=== PATIENT | female | born 1940 | race Caucasian/White ===

== ENCOUNTER 2020-06-13 23:29 | Observation (INO) | payer MEDICARE, OTHER, SELFPAY ==
[2020-06-13 23:38] VITALS: PULSE 69; RESP 15; O2SAT 96
[2020-06-13 23:40] VITALS: BP 160/81; PULSE 75; RESP 14; TEMP 36.7; O2SAT 98
[2020-06-13 23:46] VITALS: BP 129/71; PULSE 69; RESP 14; O2SAT 96
[2020-06-13] MEDS: HYDROMORPHONE 0.5 MG INJ IV (23:49)
[2020-06-13] MEDS: SODIUM CHLORIDE 0.9% 1,000 ML 1000 ML IV (23:49)
[2020-06-13] MEDS: ONDANSETRON 4 MG/2 ML INJ IV (23:49)
[2020-06-13] MEDS: KETOROLAC 60 MG/2 ML VIAL 15 MG IV (23:49)
[2020-06-14] VITALS (44 sets, daily range): BP systolic 89–144; BP diastolic 46–78; PULSE 55–101; RESP 12–18; TEMP 36.1–37.3; O2SAT 88–99; BMI 25.6
--- NOTE | 2020-06-14 | PATH_ITS ---
[facility] Accession Number: [id number] . 01 Material submitted: . gallbladder - GALLBLADDER . 01 Clinical history: . LRQ PAIN . 02 Diagnosis: Gallbladder, Cholecystectomy: Chronic cholecystitis with cholelithiasis. Negative for dysplasia and malignancy. MRV 06/16/2020 1343 Local . 02 Electronically signed: . Yoselin Bronson MD, Pathologist NPI- [id number] . 01 Gross description: . Received in formalin, labeled with the patient's name, MRN and gallbladder, is a 7.9 x 3.3 x 2.0 cm gallbladder with an attached cystic duct, measuring 0.2 cm in length x 0.2 cm in diameter. The serosal surface is davis-green and smooth. The gallbladder is opened to reveal a green viscous bile with multiple yellow-davis calculi ranging in size from 0.1 cm to 1.0 cm in greatest dimension. The mucosal surface is davis-green and velvety. No discrete lesions are identified. The wall thickness measures up to 0.2 cm. No lymph nodes are identified. The cystic duct margin is inked black. The cystic duct margin, a surgical device sales representative section of the fundus, and a surgical device sales representative section of the body are submitted in cassette A1. ([id number]) /[facility] 06/15/2020 1549 Local . 02 Pathologist provided ICD-10: K80.60 . 02 CPT . 706782 Performed at: 01 [facility] [address] [id number] MD Ramiro Álvarez MD Phone: [phone] Performed at: 02 [facility] [address] [place] [id number] MD Yoselin Bronson MD Phone: [phone]
[2020-06-14 00:07] LABS: Add Manual Diff / Slide Review NO; Basophils Absolute Auto 100 /uL (0-100); Basophils Percent Auto 0.5 % (0-2); Eosinophils Absolute Auto 0 /uL (0-450); Eosinophils Percent Auto 0.1 % (2-4); Hematocrit 39.8 % (36-46); Hemoglobin 13.3 g/dL (12.0-16.0); Lymphocytes Absolute Auto 500 /uL (1100-4500); Lymphocytes Percent Auto 3.6 % (25-40); Mean Corpuscular HGB Conc 33.5 % (30-36); Mean Corpuscular Hemoglobin 30.3 PG (26-34); Mean Corpuscular Volume 90.7 fL (80-100); Monocytes Absolute Auto 400 /uL (0-900); Monocytes Percent Auto 3.4 % (3-14); Neutrophils Absolute Auto 11700 /uL (1500-7000); Neutrophils Percent Auto 92.4 % (50-75); Platelet Count 308 X10^3/uL (150-400); Red Blood Cell Count 4.39 X10^6/uL (4.0-5.2); White Blood Cell Count 12.6 X10^3/uL (4.5-11.0)
[2020-06-14 00:11] LABS: Alanine Aminotransferase 24 IU/L (<35); Albumin 4.4 g/dL (3.5-5.0); Albumin Globulin Ratio 1.8 (1.0-2.8); Alkaline Phosphatase 57 U/L (38-126); Aspartate Aminotransferase 29 IU/L (14-36); BUN Creatinine Ratio 34.8 (6-22); Bilirubin Total 1.1 mg/dL (0.2-1.3); Blood Urea Nitrogen 16 mg/dL (7-17); Calcium 9.1 mg/dL (8.4-10.2); Carbon Dioxide 24 mmol/L (22-32); Chloride 99 mmol/L (98-107); Estimated Glomerular Filt Rate > 60.0 mL/min (>60); Globulin 2.5 g/dL (1.7-4.1); Glucose 142 mg/dL (80-110); HEMOLYSIS < 15 (0-50); Lipase 25 U/L (23-300); Potassium 3.9 mmol/L (3.4-5.1); Sodium 132 mmol/L (137-145); Total Protein 6.9 g/dL (6.3-8.2)
--- NOTE | 2020-06-14 00:38 | DI.CT.S_ITS ---
PROCEDURE: CT ABDOMEN PELVIS W CON INDICATIONS: severe RLQ pain TECHNIQUE: After the administration of intravenous contrast, 5 mm thick sections acquired from the diaphragm to the symphysis. 5 mm coronal and sagittal reformats were acquired. For radiation dose reduction, the following was used: automated exposure control, adjustment of mA and/or kV according to patient size. COMPARISON: [facility], , ABDOMEN LIMITED, 06/14/2020, 3:05. FINDINGS: Image quality: Excellent. ABDOMEN: Lung bases: Lung bases are clear. Heart size is normal. Solid organs: Liver is enlarged. Gallbladder demonstrates multiple stones. Gallbladder wall is at the upper limits of normal. No visualized ductal stones. However, there is mild prominence of the bile ducts. Pancreas enhances normally. Spleen is normal in size and enhancement. No adrenal nodules. Kidneys demonstrate normal size and enhancement. There is slight prominence of the left renal collecting system without visualized source of obstruction. Multiple cysts are noted. Peritoneum and bowel: Bowel loops demonstrate normal wall thickness and caliber. No free fluid or air. Colonic diverticula without inflammatory changes are noted. There is mild appearance of distal esophageal thickening. Nodes and vessels: No retroperitoneal or mesenteric adenopathy by size criteria. Aorta and inferior vena cava are normal in size. Miscellaneous: Small fat containing umbilical hernia is present. In addition, a fat containing anterior hernia is present at the level of the liver with rectus diastasis measuring 22 mm. PELVIS: Genitourinary: Bladder wall thickness is normal. Miscellaneous: Fat containing inguinal hernias are noted. Bones: No suspicious bony lesions. No vertebral body compression fractures. IMPRESSION: 1. Cholelithiasis with gallbladder wall at the upper limits of normal suggestive of cholecystitis. Mild ductal dilation is identified without visualized choledocholithiasis. Ultrasound is recommended for further evaluation. The above findings are concordant with preliminary report. Dictated by: Ev Mueller M.D. on 06/14/2020 at 7:46 Approved by: Ev Mueller M.D. on 06/14/2020 at 7:58
--- NOTE | 2020-06-14 01:42 | ED.ABDPAIN ---
HPI - Abdominal Pain General Chief Complaint: Abdominal Pain Stated Complaint: LRQ pain Time Seen by Provider: 06/13/20 23:32 Source: patient and EMS Mode of arrival: EMS Limitations: no limitations History of Present Illness HPI narrative: 80F nonsmoker with non contributory medical history presents by aeromedical transport for chief complaint of severe RLQ pain. She states it felt like a pulled muscle for perhaps upwards of 1 week but over the past few days has become very intense and in her right lower quadrant. She denies any radiation of the pain but does state it seems to get worse with motion and improves with rest. Over the course of the day she has begun feeling ill with low-grade fever, poor appetite and nausea. She denies any vomiting. She denies any dysuria, frequency or urgency. She denies any vaginal bleeding discharge. She has been on a large boat out at [place]. She denies any history of the same. She denies bad food. MD complaint: abdominal pain Onset (ago): day(s) Pain Consistency: constant Location: RLQ Severity: severe Quality: cramping and stabbing Radiation: none Relieving factors: rest Exacerbating factors: movement Associated symptoms: nausea, fever and chills Related Data Allergies Allergy/AdvReac Type Severity Reaction Status Date / Time No Known Drug Allergies Allergy Verified 06/13/20 23:44 Review of Systems Constitutional Constitutional: Reports chills, Denies fatigue, Reports fever(s), Denies frequent falls, Denies lethargy and Denies weakness Eyes Eyes: Denies change in vision, Denies eye discharge, Denies irritation and Denies loss of vision ENT Ears, Nose, Mouth, and Throat: Denies change in voice, Denies dizziness, Denies neck pain, Denies sore throat and Denies throat swelling Cardiovascular Cardiovascular: Denies chest pain, Denies irregular heart rhythm, Denies lightheadedness, Denies palpitations, Denies dyspnea, Denies dyspnea on exertion and Denies orthopnea Respiratory Respiratory: Denies cough, Denies dyspnea, Denies dyspnea on exertion and Denies wheezing Gastrointestinal Gastrointestinal: Reports abdominal pain, Denies change in bowel habits, Denies diarrhea, Reports nausea and Denies vomiting Musculoskeletal Musculoskeletal: Denies neck pain and Denies numbness Integumentary/Breasts Skin/Breast: Denies pruritus, Denies erythema, Denies rash and Denies wounds Neurologic Neurologic: Denies behavioral changes, Denies confusion, Denies dizziness, Denies frequent falls, Denies loss of vision, Denies numbness and Denies weakness Psychiatric Psychiatric: Denies anxiety, Denies behavioral changes, Denies confusion, Denies depression, Denies homicidal ideation and Denies suicidal ideation Endocrine Endocrine: Denies fatigue, Denies flushing and Denies palpitations Hematologic/Lymphatic Hematologic/Lymphatic: Denies easy bruising Allergic/Immunologic Allergic/Immunologic: Denies urticaria, Denies throat swelling and Denies wheezing Patient History Social History Smoking Status: Never smoker Smoking Status: Never smoker alcohol intake frequency: 0-2 drinks per day Substance Use Type: does not use Exam Narrative Exam Narrative: GENERAL: [] year old patient appears stated age. Well-nourished, well-developed patient, in mild distress. HEAD: Atraumatic. Normocephalic. EYES: Pupils equal round and reactive. Extraocular motions intact. No scleral icterus. No injection or drainage. ENT: Nose without bleeding, purulent drainage. Throat without erythema, tonsillar hypertrophy or exudate. Airway patent. NECK: Trachea midline. Non tender CARDIOVASCULAR: Regular rate and rhythm without murmurs, gallops, or rubs. RESPIRATORY: Clear to auscultation. Breath sounds equal bilaterally. No wheezes, rales, or rhonchi. GASTROINTESTINAL: Abdomen soft, tender in the right lower quadrant, nondistended. No obturator's or psoas EXTREMITIES: No edema or joint tenderness. BACK: Nontender without deformity or crepitance. No flank tenderness. NEURO: AOx3. SKIN: No rash or erythema of visible areas Initial Vital Signs Initial Vital Signs: Vital Signs Pulse Rate 69 06/13/20 23:38 Respiratory Rate 15 06/13/20 23:38 Pulse Oximetry 96 06/13/20 23:38 Course Orders Ordered: ED Orders 06/13/20 23:37 Complete Blood Count AUTO DIFF Stat Comprehensive Metabolic Panel Stat Lipase Stat 06/14/20 00:38 CT abdomen pelvis w con Stat 06/14/20 01:45 Urine Microscopic Stat 06/14/20 02:40 US abdomen limited Stat Discontinued Medications Hydromorphone HCl (Dilaudid) 0.5 mg IV NOW ONE Stop: 06/13/20 23:45 Last Admin: 06/13/20 23:49 Dose: 0.5 mg Documented by: GOLDIE Hydromorphone HCl (Dilaudid) 0.5 mg IV NOW ONE Stop: 06/14/20 03:54 Sodium Chloride (Normal Saline 0.9%) 1,000 mls @ 1,000 mls/hr IV BOLUS ONE Stop: 06/14/20 00:43 Last Infusion: 06/14/20 01:59 Dose: 0 mls/hr Documented by: Admin: 06/13/20 23:49 Dose: 1,000 mls/hr Documented by: GOLDIE Ketorolac Tromethamine (Toradol) 15 mg IV NOW ONE Stop: 06/13/20 23:45 Last Admin: 06/13/20 23:49 Dose: 15 mg Documented by: GOLDIE Ondansetron HCl (Zofran) 4 mg IV NOW ONE Stop: 06/13/20 23:45 Last Admin: 06/13/20 23:49 Dose: 4 mg Documented by: GOLDIE Consultations Consultation #1: Dr. Singh to accept patient on his service Vital Signs Vital signs: Vital Signs - 8 hr 06/13/20 23:38 06/13/20 23:40 06/13/20 23:46 Temperature 98.0 F Pulse Rate 69 75 69 Respiratory Rate 15 14 14 Blood Pressure 160/81 H 129/71 Pulse Oximetry 96 98 96 06/14/20 00:00 06/14/20 00:15 06/14/20 00:30 Temperature Pulse Rate 62 63 62 Respiratory Rate Blood Pressure 119/67 107/58 L 107/56 L Pulse Oximetry 98 98 99 06/14/20 00:45 06/14/20 01:11 06/14/20 01:30 Temperature Pulse Rate 62 73 62 Respiratory Rate Blood Pressure 107/58 L Pulse Oximetry 99 94 99 06/14/20 01:32 06/14/20 01:40 06/14/20 01:45 Temperature Pulse Rate 65 69 62 Respiratory Rate Blood Pressure 121/59 L 144/77 H 121/64 Pulse Oximetry 98 95 95 06/14/20 02:00 Temperature Pulse Rate 61 Respiratory Rate Blood Pressure 111/59 L Pulse Oximetry 92 MDM - Abdominal Pain Lab Data Result diagrams: 06/13/20 23:37 06/13/20 23:37 Labs: Lab Results 06/13/20 06/13/20 06/14/20 Range/Units 23:37 23:37 01:45 WBC 12.6 H (4.5-11.0) X10^3/uL RBC 4.39 (4.0-5.2) X10^6/uL Hgb 13.3 (12.0-16.0) g/dL Hct 39.8 (36-46) % MCV 90.7 (80-100) fL MCH 30.3 (26-34) PG MCHC 33.5 (30-36) % RDW 13.0 (11.6-14.8) % Plt Count 308 (150-400) X10^3/uL Neut % (Auto) 92.4 H (50-75) % Lymph % (Auto) 3.6 L (25-40) % [place] % (Auto) 3.4 (3-14) % Eos % (Auto) 0.1 L (2-4) % Baso % (Auto) 0.5 (0-2) % Neut # (Auto) 30711 H (1413-9939) /uL Lymph # (Auto) 500 L (9433-6943) /uL [place] # (Auto) 400 (0-900) /uL Eos # (Auto) 0 (0-450) /uL Baso # (Auto) 100 (0-100) /uL Sodium 132 L (137-145) mmol/L Potassium 3.9 (3.4-5.1) mmol/L Chloride 99 (98-107) mmol/L Carbon Dioxide 24 (22-32) mmol/L BUN 16 (7-17) mg/dL Creatinine 0.46 L (0.52-1.04) mg/dL Estimated GFR > 60.0 (>60) mL/min BUN/Creatinine Ratio 34.8 H (6-22) Glucose 142 H (80-110) mg/dL Calcium 9.1 (8.4-10.2) mg/dL Total Bilirubin 1.1 (0.2-1.3) mg/dL AST 29 (14-36) IU/L ALT 24 (<35) IU/L Alkaline Phosphatase 57 (38-126) U/L Total Protein 6.9 (6.3-8.2) g/dL Albumin 4.4 (3.5-5.0) g/dL Globulin 2.5 (1.7-4.1) g/dL Albumin/Globulin Ratio 1.8 (1.0-2.8) Lipase 25 (23-300) U/L Urine RBC 1-5/hpf (0-5/HPF) Urine WBC 1-5/hpf (0-5/HPF) Ur Squamous Epith Cells 1-5 /hpf (0-5/HPF) Urine Bacteria Few (2-10) H (None) Hyaline Casts 0-1/lpf (None) Ur Culture Indicated? Cult not indicated Point of care testing: Urine Dip Bedside Urine Glucose Negative Bedside Urine Bilirubin - Negative Bedside Urine Ketone ++ 40 Urine Specific [place] 1.015 Bedside Urine Occult Blood +/- Bedside Urine pH 6.5 Bedside Urine Protein + 30 Bedside Urine Urobilinogen - Negative Bedside Urine Nitrite - Negative Bedside Urine Leukocytes +/- 15 Esterase Imaging Data US - abdomen: Radiologist's Impression: Acute cholecystitis with gallbladder wall thickening, distended gallbladder and positive Faith sign CT scan - abdomen/pelvis: Radiologist's Impression: Cholelithiasis and distended gallbladder with slightly prominent wall. Ultrasound is clinically indicated.
[2020-06-14 02:08] LABS: Bacteria Urine Few (2-10); Hyaline Casts Urine 0-1/LPF; RBC Urine 1-5/HPF (0-5/HPF); Squamous Epithelial Cell Urine 1-5 /HPF (0-5/HPF); WBC Urine 1-5/HPF (0-5/HPF)
[2020-06-14 02:09] LABS: Culture Indicated Urine Cult Not Indicated
[2020-06-14] MEDS: HYDROMORPHONE 0.5 MG INJ IV (04:13)
[2020-06-14] MEDS: SODIUM CHLORIDE 0.9% 1,000 ML 125 ML IV (06:10)
[2020-06-14] MEDS: MORPHINE 2 MG/ML INJ IV ×2 (06:10→12:22)
[2020-06-14 06:16] LABS: COVID19 -Nasal RAPID Negative (Negative)
[2020-06-14] MEDS: PIPERACILLIN-TAZO 3.375 GM/50 ML FROZ.PIGGY IV ×2 (06:22→20:30)
--- NOTE | 2020-06-14 08:31 | PM.HP.1 ---
History of Present Illness History of Present Illness Date Patient Seen: 06/14/20 Time Patient Seen: 08:32 Chief complaint: LRQ pain Narrative: This is a 80-year-old woman who is seen in consultation for acute cholecystitis. She developed a right-sided abdominal pain associated with some nausea no vomiting yesterday. She is brought to the emergency room underwent a CT as well as a right upper quadrant ultrasound both of which demonstrates multiple gallstones and evidence of acute cholecystitis. On admission she was afebrile blood white blood cell count 12 LFTs within normal limits, she was started on IV Zosyn. No history of biliary colic. Past medical history relevant for hypertension, abdominoplasty, knee replacement. Patient History Medical History (Updated 06/14/20 @ 08:35 by Cristofer Singh MD) HTN (hypertension) (Acute) Surgical History (Updated 06/14/20 @ 08:34 by Cristofer Singh MD) H/O: hysterectomy (Acute) History of knee replacement (Acute) Family & Social History Social History: household members spouse Prior Living Arrangements Apartment/Condo Safety & Behavioral: Feels Safe in Current Yes Environment Been Physically Hurt or No Threatened By a Person Suicidal Ideation Description None Suicide Plan Description No Plan Tobacco & Substance use: Smoking Status Never smoker alcohol intake frequency 3 or more drinks per day Substance Use Type does not use Meds Home Medications and Allergies Allergies Allergy/AdvReac Type Severity Reaction Status Date / Time No Known Drug Allergies Allergy Verified 06/13/20 23:44 Review of Systems Review of Systems Narrative: A 10 point review of systems is negative except as noted in the HPI Exam Vital Signs (past 8 hours): - 06/14/20 00:45 06/14/20 01:11 06/14/20 01:30 Temperature Pulse Rate 62 73 62 Respiratory Rate Blood Pressure 107/58 L Pulse Oximetry 99 94 99 06/14/20 01:32 06/14/20 01:40 06/14/20 01:45 Temperature Pulse Rate 65 69 62 Respiratory Rate Blood Pressure 121/59 L 144/77 H 121/64 Pulse Oximetry 98 95 95 06/14/20 02:00 06/14/20 02:15 06/14/20 02:30 Temperature Pulse Rate 61 60 63 Respiratory Rate 15 Blood Pressure 111/59 L 104/56 L 111/58 L Pulse Oximetry 92 92 91 06/14/20 02:45 06/14/20 03:00 06/14/20 03:15 Temperature Pulse Rate 62 67 66 Respiratory Rate Blood Pressure 106/60 112/71 124/64 Pulse Oximetry 92 93 95 06/14/20 03:30 06/14/20 03:31 06/14/20 03:45 Temperature Pulse Rate 65 65 62 Respiratory Rate Blood Pressure 133/78 114/67 Pulse Oximetry 92 94 95 06/14/20 04:00 06/14/20 04:15 06/14/20 04:30 Temperature Pulse Rate 61 65 58 L Respiratory Rate Blood Pressure 120/67 119/69 98/55 L Pulse Oximetry 93 95 88 L 06/14/20 04:45 06/14/20 04:48 06/14/20 05:00 Temperature Pulse Rate 59 L 60 58 L Respiratory Rate Blood Pressure 89/53 L 92/54 L 98/56 L Pulse Oximetry 89 L 89 L 91 06/14/20 05:15 06/14/20 06:50 06/14/20 07:41 Temperature 98.0 F 97.1 F L Pulse Rate 59 L 57 L Respiratory Rate 18 16 Blood Pressure 110/56 L 98/55 L Pulse Oximetry 90 L 94 90 L Oxygen Delivery Method Room Air Oxygen Flow Rate 0 Narrative Exam Narrative: General-no acute distress, well nourished elderly woman HEENT-moist mucous membranes, no scleral icterus Neck-supple, no lymphadenopathy Chest- non labored respirations, clear to auscultation bilaterally Cardiac-regular rate no peripheral edema Abdomen-soft, mildly tender right upper quadrant. Extremities-warm, well perfused Neurological-alert and oriented, no focal deficits Objective Labs Result Diagrams: 06/13/20 23:37 06/13/20 23:37 Labs: Laboratory Results - last 24 hr 06/13/20 06/13/20 06/14/20 23:37 23:37 01:45 WBC 12.6 H RBC 4.39 Hgb 13.3 Hct 39.8 MCV 90.7 MCH 30.3 MCHC 33.5 RDW 13.0 Plt Count 308 Neut % (Auto) 92.4 H Lymph % (Auto) 3.6 L [place] % (Auto) 3.4 Eos % (Auto) 0.1 L Baso % (Auto) 0.5 Neut # (Auto) 81866 H Lymph # (Auto) 500 L [place] # (Auto) 400 Eos # (Auto) 0 Baso # (Auto) 100 Sodium 132 L Potassium 3.9 Chloride 99 Carbon Dioxide 24 BUN 16 Creatinine 0.46 L Estimated GFR > 60.0 BUN/Creatinine Ratio 34.8 H Glucose 142 H Calcium 9.1 Total Bilirubin 1.1 AST 29 ALT 24 Alkaline Phosphatase 57 Total Protein 6.9 Albumin 4.4 Globulin 2.5 Albumin/Globulin Ratio 1.8 Lipase 25 Urine RBC 1-5/hpf Urine WBC 1-5/hpf Ur Squamous Epith Cells 1-5 /hpf Urine Bacteria Few (2-10) H Hyaline Casts 0-1/lpf Ur Culture Indicated? Cult not indicated COVID-19 PCR 06/14/20 05:00 WBC RBC Hgb Hct MCV MCH MCHC RDW Plt Count Neut % (Auto) Lymph % (Auto) [place] % (Auto) Eos % (Auto) Baso % (Auto) Neut # (Auto) Lymph # (Auto) [place] # (Auto) Eos # (Auto) Baso # (Auto) Sodium Potassium Chloride Carbon Dioxide BUN Creatinine Estimated GFR BUN/Creatinine Ratio Glucose Calcium Total Bilirubin AST ALT Alkaline Phosphatase Total Protein Albumin Globulin Albumin/Globulin Ratio Lipase Urine RBC Urine WBC Ur Squamous Epith Cells Urine Bacteria Hyaline Casts Ur Culture Indicated? COVID-19 PCR Negative Assessment & Plan Assessment and plan (1) Acute cholecystitis: Status: Acute Assessment & Plan narrative: 80-year-old woman with with 24 hours of acute cholecystitis, normal LFTs. I reviewed her ultrasound as well as her CT abdomen pelvis which demonstrates cholelithiasis and associated acute cholecystitis. I recommended that we proceed with a laparoscopic cholecystectomy. I described the technical nature of the operation to her and the surgical risks including bleeding infection damage to surrounding structures need for further procedure heart attack stroke . Her questions have been answered she is in agreement with this plan will proceed to the operating room. COVID-19 COVID-19 status: Negative Result date/Date tested (Pos, Neg/Pending): 06/14/20 Quality VTE Deep Vein Thrombosis/Pulmonary Embolism Present on Admission: No
--- NOTE | 2020-06-14 09:01 | CM.DANOTE ---
DCP: Case received, EMR reviewed and met with patient. , Catracho, was also present in room. Was able to obtain information regarding baseline activity level prior to hospitalization. DCP assessment completed with information currently available. Patient is a 80 year old female who admitted early this morning to the care of the hospitalist/surgical team. PCP: Dr. Sanchez at [facility]. Payer: confirmed: Medicare/[employer]. Patient came to the hospital via EMS secondary to having right lower quadrant pain. Patient was diagnosed with acute cholecystitis. She is to be having laparoscopic surgery. Patient and her reside in [place]. They were on a friend's boat near [place], when the symptoms occurred. Patient is alert and oriented, independent. She does not drive due to her macular degeneration. P: DCP to continue to follow. Patient should be able to go home when she is medically stable. Dinorah Cee RN/Pathology Collector
--- NOTE | 2020-06-14 13:41 | PC.NURSE ---
Patient down to OR at 1335.
[2020-06-14] MEDS: LACTATED RINGERS 1,000 ML 42 ML IV ×2 (14:00→17:31)
[2020-06-14] MEDS: CEFAZOLIN 2 GM/100 ML FROZ.PIGGY IV (14:39)
--- NOTE | 2020-06-14 15:01 | SUR.OPER ---
Supine on padded OR bed, head on pillow, safety belt at thigh, left arm padded and tucked at side. Right arm secured on padded arm oard <90 degrees abduction. Legs uncrossed. Padded footboard in place. Tape over blanket to secure lower legs.
[2020-06-14] MEDS: BUPIVACAINE 0.25% (PF) VIAL 30 ML INJ (15:08)
--- NOTE | 2020-06-14 16:17 | P.OP_ITS ---
Operative Date/Time/Diagnoses Date of procedure: 06/14/20 Time of procedure: 16:17 Pre-op diagnosis: acute cholecystitis Post-op diagnosis: same Procedure & Clinicians Procedure: laparoscopic cholecystectomy Same procedure as scheduled: Yes Indications: 80F with RUQ pain x 24h pain RUQ US demonstrates acute cholecystitis Surgeon: Cristofer Singh Anesthesia Type: General Operative Notes Findings: Chronic cholecystitis Specimen(s): other Prosthetic devices, grafts, tissues, transplants, or devices: gallbladder Estimated Blood Loss (mL): 40 Procedure in detail: The patient was placed supine on the table and bilateral lower extremity compression devices were applied. Anesthesia was induced they were intubated with an endotracheal tube and received 2g of Ancef. A time-out was performed. They were prepped and draped in sterile fashion. An infraumbilical incision was made, the umbilical stalk was elevated and the fascia was sharply incised entering the abdomen atraumatically. A blunt tip 12mm balloon trocar was then inserted, pneumoperitoneum was established and insp ection of the abdomen demonstrated no evidence of injury. They were placed head up and right side up and then a 11 mm port was placed high in the epigastrium and two 5mm in the right upper quadrant. There was extensive adhesions between the gallbladder and the omentum and the liver suggestive of acute on chronic cholecystitis. The gallbladder was percutanously drained to facilitate its mobilization. The gallbladder was grasped by the fundus and retracted over the liver and retracted laterally by the infundibulum. Using electrocautery the lateral plane between the gallbladder and the liver was opened towards the fundus. The gallbladder was then retracted laterally and the medial plane was developed in the same manner. With the gallbladder mobilized the bottom of the cystic plate was visualized. The hepatocystic triangle was meticulosly skeletonized using hook electrocautery of all fat and fibrous tissue from both the front and the back. Only two structures were then clearly seen entering the gallbladder the cystic duct and the cystic artery. With the critical view of safety fully established the cystic duct was clipped twice proximally and once distally using the 10 mm clip applied under direct visualization and then sharply divided. The cystic artery was divided in the same fashion. The gallbladder was removed from the liver bed using electro cautery. The liver bed was then inspected for hemostasis and this was achieved. The abdomen was irrigated with sterile saline and inspection was made that showed the clips in good position. The specimen was removed using Endo-Catch. The abdomen was desufflated. The umbilical fascia was closed with 0 Vicryl in a [id number] fashion under direct visualization. Skin incisions were irrigated and closed with 4-0 Monocryl. 30 ml of 0.25% bupivacaine was infiltrated into the subcutaneous tissue of the incisions. The wounds were sealed with Dermabond. Patient emerged from anesthesia was extubated and transferred to recovery in stable condition. The sponge and instrument count at the end of the operation was correct. Complications: none Post-operative Condition: stable Disposition: Acute Care
[2020-06-14] MEDS: ATORVASTATIN 10 MG TABLET PO (20:30)
[2020-06-14] MEDS: ACETAMINOPHEN 325 MG TABLET 650 MG PO (22:16)
[2020-06-14] MEDS: OXYCODONE IR 5 MG TABLET PO (22:17)
--- NOTE | 2020-06-14 22:35 | PC.NURSE ---
Evening shift: Report received from PACU. Care assumed at 1655. Pt. drowsy but oriented and appropriate. Denies pain, nausea. VSS. Lap sites covered with band-aids, CDI. Ate lightly. OOB, steady on feet, voiding, positive flatus. Some pain around 2200, pain meds given.
[2020-06-15] MEDS: ACETAMINOPHEN 325 MG TABLET 650 MG PO (03:59)
[2020-06-15 04:00] VITALS: BP 110/55; PULSE 67; RESP 18; TEMP 36.9; O2SAT 95
[2020-06-15] MEDS: OXYCODONE IR 5 MG TABLET PO ×2 (04:00→10:16)
[2020-06-15] MEDS: LEVOTHYROXINE 88 MCG TABLET PO (05:18)
[2020-06-15] MEDS: PIPERACILLIN-TAZO 3.375 GM/50 ML FROZ.PIGGY IV (05:18)
[2020-06-15] MEDS: MORPHINE 2 MG/ML INJ IV (05:57)
[2020-06-15 08:16] VITALS: BP 103/52; PULSE 61; RESP 18; TEMP 37.1; O2SAT 92
[2020-06-15] MEDS: FLUoxetine 20 MG CAPSULE 40 MG PO (08:49)
[2020-06-15] MEDS: buPROPion XL 150 MG TAB PO (08:49)
--- NOTE | 2020-06-15 10:01 | PM.DS.1 ---
History of Present Illness History of Present Illness Chief complaint: LRQ pain Narrative: This is a 80-year-old woman who is seen in consultation for acute cholecystitis. She developed a right-sided abdominal pain associated with some nausea no vomiting yesterday. She is brought to the emergency room underwent a CT as well as a right upper quadrant ultrasound both of which demonstrates multiple gallstones and evidence of acute cholecystitis. On admission she was afebrile blood white blood cell count 12 LFTs within normal limits, she was started on IV Zosyn. No history of biliary colic. Past medical history relevant for hypertension, abdominoplasty, knee replacement. Discharge Providers Provider Date of admission: 06/14/20 04:43 Discharge Date: 06/15/20 Discharge provider: Cristofer Singh MD Summary Hospital Course Discharge Diagnosis: Acute cholecystitis Hospital Course: 80-year-old woman was admitted for acute cholecystitis. She received antibiotic therapy was taken to the operating room and underwent a laparoscopic cholecystectomy on 06/14 which demonstrated acute on chronic cholecystitis. Her postoperative observation period was unremarkable. On postoperative day 1 she is tolerating a diet without nausea vomiting abdominal pain is well controlled she is urinating normally. Status at Discharge Cognitive/behavioral status at discharge: oriented Functional status at discharge: independent ambulation Overall status at discharge: patient is back to baseline Exam Vital Signs (past 8 hours): - 06/15/20 04:00 06/15/20 08:16 Temperature 98.4 F 98.7 F Pulse Rate 67 61 Respiratory Rate 18 18 Blood Pressure 110/55 L 103/52 L Pulse Oximetry 95 92 Oxygen Delivery Method Nasal Cannula Oxygen Flow Rate 2 Narrative Exam Narrative: General elderly female alert oriented no acute distress Abdomen soft appropriately tender to palpation incisions clean dry intact. Objective Labs Result Diagrams: 06/13/20 23:37 06/13/20 23:37 Discharge Plan Discharge Plan Patient Disposition: Home Discharge orders & Medications Prescriptions: New oxycodone 5 mg tablet 5 mg PO Q6H PRN (Reason: pain) Qty: 20 RF: 0 Continued atorvastatin 10 mg tablet 10 mg PO DAILY RF: 0 bupropion HCl 150 mg tablet sustained-release 12 hr 150 mg PO DAILY RF: 0 fluoxetine 40 mg capsule 40 mg PO DAILY RF: 0 levothyroxine 88 mcg tablet 88 mcg PO DAILY RF: 0 Diet/Activity/Treatments Diet: Low-fat Activity: No lifting >20 lbs x 4 weeks. Walking only for exercise for [address] while taking narcotics. Skin/Wound/Dressing Care Report to your healthcare provider any signs of infection, such as:: chills, fever, increased pain, unusual drainage and unusual redness Visit Report/Discharge Packet Instructions: Cholecystectomy -- Laparoscopic Surgery, Oxycodone, [facility]: Wound Care Visit Report Forms: Patient Portal/API, Stroke Signs & Symptoms Discharge Data Attending Provider: Cristofer Singh Admit Date/Time: 06/14/20 04:43 Quality VTE Deep Vein Thrombosis/Pulmonary Embolism Present on Admission: No
--- NOTE | 2020-06-15 12:09 | PC.NURSE ---
Discharge: IV's dc'd intact. Reviewed all instructions and provided with prescriptions. She will f/u with her PCP in [place] (per Dr Singh). Verbalized understanding of d/c info and stated no further questions. All belongings collected and sent with patient, wheeled out to private vehicle by nursing staff.
== END 2020-06-15 12:11 | disposition home or self-care (01) ==
LOC: ED 06-14 04:09 → AC 06-14 07:17
PROVIDERS: Admitting Provider Surgery; Emergency Provider Emergency Medicine; Referring Provider Emergency Medicine; Visit Provider Surgery
PROC: 0FT44ZZ Resection of Gallbladder, Percutaneous Endoscopic Approach (ICD-10-PCS; CPT 47562; principal; 2020-06-14 15:00)
DX: R10.31 Right lower quadrant pain (principal); Z11.59 Encounter for screening for other viral diseases; K80.10 Calculus of gallbladder with chronic cholecystitis without obstruction
CPT/HCPCS: 47562; 36415; 74177; 80053; 81003; 81015; 83690; 85025; 87635; 96361; 96365; 96366; 96375; 96376; 99218; 99284; G0378; J0690; J1170; J1885; J2270; J2405; J2543; J3010; Q9967